=== PATIENT | male | born 1990 | race Caucasian/White ===

== ENCOUNTER → 2017-02-11 | Outpatient (CLI) | payer BC, OTHER ==
[2017-02-11 15:16] LABS: ALT 37 U/L (21-72); AST 24 U/L (17-59); Alkaline Phosphatase 84 U/L (38-126); Anion Gap 10 mmol/L; Blood Urea Nitrogen 14 mg/dL (9-20); Calcium 9.7 mg/dL (8.4-10.2); Carbon Dioxide 30 mmol/L (22-30); Chloride 100 mmol/L (98-107); Cholesterol 143 mg/dL (<200); Glucose 80 mg/dL (74-99); HDL Cholesterol 35 mg/dL (40-60); Non-African American GFR(MDRD) >60 (>60 ml/min/1.73 sqM); Potassium 4.2 mmol/L (3.5-5.1); Sodium 140 mmol/L (137-145); Total Bilirubin 0.8 mg/dL (0.2-1.3); Total Protein 7.2 g/dL (6.3-8.2)
[2017-02-11 15:33] LABS: CH 31.1; CHCM 33.5; HCT 45.7 % (39.0-53.0); HGB 15.2 gm/dL (13.0-17.5); MCH 30.9 pg (25.0-35.0); MCHC 33.2 g/dL (31.0-37.0); Mean Platelet Volume 7.1; RBC 4.91 m/uL (4.30-5.90); RDW 12.9 % (11.5-15.5); WBC 8.8 k/uL (3.8-10.6)
== END | disposition home or self-care (01) ==
LOC: LABWHC1 14:41
PROVIDERS: ATTEND Family Medicine
DX: R07.9 Chest pain, unspecified (principal); Z82.49 Family history of ischemic heart disease and other diseases of the circulatory system
CPT/HCPCS: 36415; 80053; 80061; 84443; 85027

== ENCOUNTER 2017-05-13 18:32 | Emergency (ER) | payer BC ==
[2017-05-13 18:42] VITALS: BP 139/94; PULSE 110; RESP 18; TEMP 97.3
--- NOTE | 2017-05-13 18:56 | ED ---
Lower Extremity Injury HPI - General Chief Complaint: Extremity Injury, Lower Stated Complaint: Possible blood clot Time Seen by Provider: 05/13/17 18:45 Source: patient, RN notes reviewed Mode of arrival: ambulatory Limitations: no limitations - History of Present Illness Initial Comments: This a 26-year-old male presents emergency Department chief complaint left calf pain. 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 Patient states that he had some discomfort but he went on with the night and had no issues. He states that they he had [place] events and states had no difficulty but noticed last few days is having worsening pain. He states is in the muscle he has no bone pain. He was seen at urgent care today and sent here for ultrasound. X-rays show no evidence of acute fracture. Patient denies any discoloration, paresthesias. Patient denies chest pain, shortness breath. He has no history DVT. - Related Data Previous Rx's Medication Instructions Recorded Ibuprofen [Motrin] 600 mg PO Q8HR PRN #30 tab 05/13/17 Allergies Allergy/AdvReac Type Severity Reaction Status Date / Time No Known Allergies Allergy Verified 05/13/17 19:32 Review of Systems ROS Statement: Those systems with pertinent positive or pertinent negative responses have been documented in the HPI. ROS Other: All systems not noted in ROS Statement are negative. Past Medical History Past Medical History: No Reported History History of Any Multi-Drug Resistant Organisms: None Reported Past Surgical History: No Surgical Hx Reported Past Psychological History: No Psychological Hx Reported Smoking Status: Never smoker Past Alcohol Use History: Occasional Past Drug Use History: None Reported General Exam Limitations: no limitations General appearance: alert, in no apparent distress Head exam: Present: atraumatic, normocephalic, normal inspection Respiratory exam: Present: normal lung sounds bilaterally. Absent: respiratory distress, wheezes, rales, rhonchi, stridor Cardiovascular Exam: Present: regular rate, normal rhythm, normal heart sounds. Absent: systolic murmur, diastolic murmur, rubs, gallop, clicks Extremities exam: Present: other (Left lower extremity pedal pulses are equal bilaterally, there is no discoloration equal warmth bilaterally there is mild tenderness to the left with no erythema no rashes and no notable swelling. There is no bony tenderness) Neurological exam: Present: reflexes normal. Absent: motor sensory deficit Skin exam: Present: warm, dry, intact, normal color. Absent: rash Course Vital Signs 05/13/17 18:36 Temperature 97.3 F L Pulse Rate 110 H Respiratory 18 Rate Blood Pressure 139/94 O2 Sat by Pulse 100 Oximetry Medical Decision Making - Medical Decision Making 26-year-old male presents emergency Department for left calf pain after injury. Patient had x-rays which showed no acute fracture. Patient staying here for ultrasound which was negative for acute DVT. Patient was likely has left calf strain versus hematoma. Patient be discharged on ibuprofen return parameters were discussed. Disposition Clinical Impression: Pain of left calf Disposition: HOME SELF-CARE Condition: Stable Instructions: Contusion in Adults (ED) Additional Instructions: Please return to the Emergency Department if symptoms worsen or any other concerns. Prescriptions: Ibuprofen [Motrin] 600 mg PO Q8HR PRN #30 tab PRN Reason: Pain Referrals: Yovani Hernández MD [Primary Care Provider] - 1-2 days Time of Disposition: 19:37
--- NOTE | 2017-05-13 19:34 | US ---
EXAMINATION TYPE: US venous doppler duplex LE LT DATE OF EXAM: 05/13/2017 7:23 PM COMPARISON: NONE CLINICAL HISTORY: Pain. Left leg pain SIDE PERFORMED: Left TECHNIQUE: The lower extremity deep venous system is examined utilizing real time linear array sonog alton with graded compression, doppler sonography and color-flow sonography. VESSELS IMAGED: External Iliac Vein (EIV) Common Femoral Vein Deep Femoral Vein Greater Saphenous Vein * Femoral Vein Popliteal Vein Small Saphenous Vein * Proximal Calf Veins (* superficial vessels) Left Leg: Negative for DVT No evidence of DVT left leg IMPRESSION: Negative exam. No evidence of deep venous thrombosis in the left leg.
== END 2017-05-13 19:46 | disposition home or self-care (01) ==
LOC: EC 18:32
DX: M79.662 Pain in left lower leg (principal)
CPT/HCPCS: 99283

== ENCOUNTER → 2017-10-21 | Outpatient (CLI) | payer OTHER ==
--- NOTE | 2017-10-21 10:12 | XR ---
Left foot HISTORY: Trauma and pain 3 views of the left foot Bone mineralization, joint spaces and alignment are maintained. Digits are superimposed on the latera l exam which may limit sensitivity. There is soft tissue swelling medially. IMPRESSION: No radiographically apparent fracture or dislocation, follow-up as indicated.
== END | disposition home or self-care (01) ==
LOC: RADXRMAIN 09:44
PROVIDERS: ATTEND Emergency Medicine
DX: S97.82XA Crushing injury of left foot, initial encounter (principal)

== ENCOUNTER 2021-08-07 10:40 | Emergency (ER) | payer BC, OTHER ==
[2021-08-07 10:46] VITALS: RESP 16; TEMP 98
--- NOTE | 2021-08-07 12:00 | XR ---
EXAMINATION TYPE: XR finger LT DATE OF EXAM: 08/07/2021 Comparison: None TECHNIQUE: 3 views coned down left index finger. Clinical History: 30-year-old male laceration to nail bed, r/o FB or fracture Findings: No retained radiopaque foreign body is seen. No acute fracture, subluxation, dislocation. Impression: Left index finger without acute osseous abnormality seen. No retained radiopaque foreign body seen.
--- NOTE | 2021-08-07 12:04 | ED ---
Wound/Laceration HPI - General Chief Complaint: Wound/Laceration Stated Complaint: IHS/Finger injury/puncture Time Seen by Provider: 08/07/21 11:24 Source: patient Mode of arrival: ambulatory Limitations: no limitations - History of Present Illness Initial Comments: She is a 30-year-old male presenting with chief complaint of laceration to the left pointer finger. 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 The piece of metal he was working with caulked onto something and this caused the blade to lacerate the nail and tissue beneath the nail. Patient states that immediately after this happened he worked to control the bleeding, he ran the finger under cold water for 10 minutes and used hydrogen peroxide every 2 minutes. He wrapped the wound in an antibacterial bandage and presented to the ER. Patient states that there is some throbbing pain, there is some swelling and numbness and tingling. States that he still has full range of motion and sensation. Denies weakness, discharge, fever, chills, nausea, v omiting, arm pain or wrist pain. - Related Data Previous Rx's Medication Instructions Recorded Cephalexin [Keflex] 500 mg PO Q6HR 7 Days #28 cap 08/07/21 Allergies Allergy/AdvReac Type Severity Reaction Status Date / Time No Known Allergies Allergy Verified 08/07/21 11:42 Review of Systems ROS Statement: Those systems with pertinent positive or pertinent negative responses have been documented in the HPI. ROS Other: All systems not noted in ROS Statement are negative. Past Medical History Past Medical History: No Reported History History of Any Multi-Drug Resistant Organisms: None Reported Past Surgical History: No Surgical Hx Reported Past Psychological History: No Psychological Hx Reported Smoking Status: Vaper Past Alcohol Use History: Occasional Past Drug Use History: None Reported General Exam Limitations: no limitations General appearance: alert, in no apparent distress Head exam: Present: atraumatic, normocephalic, normal inspection Eye exam: Present: normal appearance, PERRL, EOMI. Absent: scleral icterus, conjunctival injection, periorbital swelling Neck exam: Present: normal inspection Left Hand Wrist exam: Present: nail avulsion (There is a laceration to the nail, this damaged 1/3 is still attached at the nailbed) Hand L/R Back: 1 - Laceration to the nail Neurological exam: Present: alert, oriented X3, CN II-XII intact Psychiatric exam: Present: normal affect, normal mood Skin exam: Present: warm, dry, intact, normal color. Absent: rash Course Vital Signs 08/07/21 08/07/21 10:43 13:40 Temperature 98 F Pulse Rate 93 88 Respiratory 16 16 Rate Blood Pressure 150/82 133/68 O2 Sat by Pulse 97 97 Oximetry Medical Decision Making - Medical Decision Making Patient is a 30-year-old male presenting with chief complaint of injury to the left pointer finger. 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 The laceration is 1 cm in length and goes across the nail bed vertically. X-ray shows no fracture or dislocation or radiopaque foreign body. At presentation patient had controlled the bleeding, prior to presentation he had rinsed the wound with warm water for 10 minutes, use hydrogen peroxide, and wrapped it in an antibacterial bandage. Patient received a tetanus booster today, given the nature of his job and the unclean state of his hands on presentation, he is placed on Keflex 500mg QID x 7 days for prophylactic coverage. Wound was cleaned, bacitracin ointment was applied, gauze was wrapped around the finger. May return to work in 2 days. Educated on wound care. Keep wound clean and dry, apply topical Neosporin twice a day for 7 days, take medication as prescribed. Answered all questions. Counseled on alarms symptoms and return parameters. Patient conveyed verbal understanding and agreed to the plan. - Radiology Data Radiology results: report reviewed, image reviewed Finger x-ray: No acute osseous normality or radiopaque foreign body Disposition Clinical Impression: Laceration Disposition: HOME SELF-CARE Condition: Good Instructions (If sedation given, give patient instructions): Laceration (DC), Acute Wound Care (ED), Finger Laceration (ED), Laceration Without Closure (ED) Additional Instructions: Take medication as prescribed. You may apply Neosporin topically twice a day for 1 week. Take Motrin and Tylenol for pain control as needed. Keep wound cl mich and covered with bandage. Report back to ER with any worsening symptoms or new onset alarm symptoms, including but not limited to increased redness, swelling, pain, discharge, difficulty moving, increasing warmth or extremity coldness, fever, chills Prescriptions: Cephalexin [Keflex] 500 mg PO Q6HR 7 Days #28 cap Is patient prescribed a controlled substance at d/c from ED?: No Referrals: None,Stated [Primary Care Provider] - 1-2 days Time of Disposition: 13:15
[2021-08-07] MEDS ORDERED: DIPH,PERTUS(ACELL)TETVAC-LF 0.5 ML VIAL IM ONE (12:15)
[2021-08-07] MEDS ORDERED: BACITRACIN OINT 1 EACH PACKET TOPICAL ONE (12:18)
[2021-08-07 13:45] VITALS: BP 133/68; PULSE 88
== END 2021-08-07 13:42 | disposition home or self-care (01) ==
LOC: EC 10:40
DX: S61.211A Laceration without foreign body of left index finger without damage to nail, initial encounter (principal); Z23 Encounter for immunization; F17.290 Nicotine dependence, other tobacco product, uncomplicated; W26.8XXA Contact with other sharp object(s), not elsewhere classified, initial encounter; Y99.0 Civilian activity done for income or pay
CPT/HCPCS: 90471; 90715; 99283

== ENCOUNTER 2022-04-08 07:41 | Emergency (ER) | payer BC, OTHER ==
[2022-04-08 07:54] VITALS: TEMP 98.8
[2022-04-08] MEDS ORDERED: ACETAMINOPHEN TAB 325 MG TAB PO STA (08:02)
[2022-04-08] MEDS ORDERED: IBUPROFEN 600 MG TAB PO STA (08:02)
--- NOTE | 2022-04-08 08:03 | ED ---
Headache HPI - General Chief Complaint: Headache Stated Complaint: fever, body aches, headache Time Seen by Provider: 04/08/22 07:55 Source: patient, RN notes reviewed Mode of arrival: ambulatory Limitations: no limitations - History of Present Illness Initial Comments: 31-year-old male presents emergency Department with chief complaint of fever cough congestion, body aches headache. Patient states started a few days ago patient states that multiple coworkers have similar symptoms. Patient states that he is not taking recent Tylenol Motrin. Denies any neck pain or neck stiffness. Patient has NO KNOWN DRUG ALLERGIES past medical history. Patient offers no other associated complaints. - Related Data Previous Rx's Medication Instructions Recorded Cephalexin [Keflex] 500 mg PO Q6HR 7 Days #28 cap 08/07/21 Oseltamivir [Tamiflu] 75 mg PO Q12HR #10 cap 04/08/22 Allergies Allergy/AdvReac Type Severity Reaction Status Date / Time No Known Allergies Allergy Verified 04/08/22 07:54 Review of Systems ROS Statement: Those systems with pertinent positive or pertinent negative responses have been documented in the HPI. ROS Other: All systems not noted in ROS Statement are negative. Past Medical History Past Medical History: No Reported History History of Any Multi-Drug Resistant Organisms: None Reported Past Surgical History: No Surgical Hx Reported Past Psychological History: No Psychological Hx Reported Smoking Status: Vaper Past Alcohol Use History: Occasional Past Drug Use History: None Reported General Exam Limitations: no limitations General appearance: alert, in no apparent distress Head exam: Present: atraumatic, normocephalic, normal inspection Eye exam: Present: normal appearance, PERRL, EOMI. Absent: scleral icterus, conjunctival injection, periorbital swelling ENT exam: Present: normal exam, normal oropharynx, mucous membranes moist Neck exam: Present: normal inspection, full ROM. Absent: tenderness, meningismus, lymphadenopathy Respiratory exam: Present: normal lung sounds bilaterally. Absent: respiratory distress, wheezes, rales, rhonchi, stridor Cardiovascular Exam: Present: regular rate, normal rhythm, normal heart sounds. Absent: systolic murmur, diastolic murmur, rubs, gallop, clicks GI/Abdominal exam: Present: soft, normal bowel sounds. Absent: distended, tenderness, guarding, rebound, rigid Neurological exam: Present: alert Skin exam: Present: warm, dry, intact, normal color. Absent: rash Course Vital Signs 04/08/22 07:52 Temperature 98.8 F Pulse Rate 94 Respiratory 20 Rate Blood Pressure 121/73 O2 Sat by Pulse 96 Oximetry Medical Decision Making - Medical Decision Making Patient is influenza A positive. Patient discharged and Tamiflu return parameters were discussed. - Lab Data Lab Results 04/08/22 04/08/22 Range/Units 07:56 08:17 Coronavirus (PCR) Not Detected (Not Detectd) Influenza Type A RNA Detected H (Not Detectd) Influenza Type B (PCR) Not Detected (Not Detectd) Disposition Clinical Impression: Influenza A Disposition: HOME SELF-CARE Condition: Stable Instructions (If sedation given, give patient instructions): Influenza (ED) Additional Instructions: Please return to the Emergency Department if symptoms worsen or any other concerns. Prescriptions: Oseltamivir [Tamiflu] 75 mg PO Q12HR #10 cap Is patient prescribed a controlled substance at d/c from ED?: No Referrals: None,Stated [Primary Care Provider] - 1-2 days Time of Disposition: 08:50
[2022-04-08 08:59] VITALS: BP 119/79; PULSE 100; RESP 18
== END 2022-04-08 08:58 | disposition home or self-care (01) ==
LOC: EC 07:41
DX: J10.1 Influenza due to other identified influenza virus with other respiratory manifestations (principal); F17.290 Nicotine dependence, other tobacco product, uncomplicated; Z20.822 Contact with and (suspected) exposure to COVID-19
CPT/HCPCS: 87502; 87635; 99284